=== PATIENT | female | born 1975 | race Caucasian/White ===

== ENCOUNTER 2020-03-03 14:15 | Emergency (ER) | payer BC, SELFPAY ==
--- NOTE | ~2020-03-03 | CT_ITS ---
EXAMINATION: CT lumbar spine wo con DATE: 03/03/2020 16:22 CDT INDICATION: Low back pain for one week TECHNIQUE: Computed tomography (CT) of the lumbar spine was performed without intravenous contrast. T he dose-length product was 501.95 mGy-cm. COMPARISON: None FINDINGS: Mild levocurvature of the lumbar spine. There is disc narrowing at L4-5. No fracture or tra umatic malalignment. No evidence for spondylolisthesis. There is vacuum phenomena at L5-S1. The follo wing disc levels are specifically discussed: L1-L2: There is mild annular disc bulging. There is no significant neural foraminal or spinal stenosi s. L2-L3: There is mild-moderate annular disc bulging. There is mild facet joint osteoarthritis. There i s bilateral neural foraminal stenosis. There is no central canal stenosis. L3-L4: There is mild annular disc bulging There is mild facet joint osteoarthritis. There is no neura l foraminal stenosis. There is no central canal stenosis. L4-L5: There is mild annular disc bulging. There is mild facet joint osteoarthritis. There is bilater al neural foraminal stenosis. There is mild central canal stenosis. L5-S1: There is mild annular disc bulging. There is mild facet joint osteoarthritis. There is no neur al foraminal stenosis. There is no central canal stenosis. IMPRESSION: 1. Mild-moderate lumbar spondylosis. Reviewed, dictated and finalized at location A.
[2020-03-03 14:30] VITALS: BP 126/66; PULSE 66; RESP 18; TEMP 36.8; O2SAT 100
--- NOTE | 2020-03-03 14:48 | ED.BACK ---
HPI - Back Pain/Injury General Chief Complaint: Back Pain/Injury Stated Complaint: back pain Time Seen by Provider: 03/03/20 14:49 Source: patient Mode of arrival: EMS Limitations: no limitations History of Present Illness HPI Narrative: 44-year-old woman comes in today complaining of low back pain that started 10/10/2022 while she was bending over using her clothes dryer. She states the pain has gotten progressively worse over the last few days and in the last 2 days she has been unable to get out of bed because of the pain. She has been taking Ultram, muscle relaxer, and ibuprofen to no avail. Her last dose of ibuprofen was at noon today. She denies fever, night sweats, numbness, tingling, weakness, incontinence, bowel or bladder difficulties, abdominal pain, or trauma. She states she has had back pain problems in the past but never this severe. She states that she sits a lot at work. MD elicited complaint: back pain Pertinent past history: prior back pain Onset (ago): week(s) (1) Timing: constant and progressively worsening Severity: severe Similar Symptoms Previously: Yes Quality: sharp and aching Location: lumbar spine Radiation: none Exacerbating factors: movement, sitting upright and walking Relieving factors: other ( Most comfortable in a lateral decubitus position) Context: bending Associated symptoms: denies other symptoms Treatments prior to arrival: NSAIDS, acetaminophen and prescription analgesics Work related injury: No Related Data Allergies Allergy/AdvReac Type Severity Reaction Status Date / Time No Known Allergies Allergy Unverified 07/10/15 11:41 Review of Systems Constitutional: Constitutional: Denies chills, Denies fever(s) and Denies weakness ENT: Denies dysphagia, Denies nasal congestion and Denies sore throat Cardiovascular: Cardiovascular: Denies chest pain and Denies radiating jaw, neck or arm pain Respiratory: Respiratory: Denies cough, Denies dyspnea and Denies wheezing Gastrointestinal: Gastrointestinal: Denies abdominal pain, Denies diarrhea, Denies nausea and Denies vomiting Genitourinary: Genitourinary: Denies hematuria, Denies nocturia, Denies dysuria and Denies urinary incontinence Musculoskeletal: Musculoskeletal: Reports as per HPI, Denies arthralgias and Denies joint swelling Integumentary/Breasts: Skin/Breast: Denies pruritus, Denies erythema and Denies rash Neurologic: Denies vertigo, Denies dizziness, Reports syncope and Denies focal weakness Psychiatric: Psychiatric: Denies anxiety and Denies depression Endocrine: Endocrine: Denies polydipsia and Denies polyuria Hematologic/Lymphatic: Hematologic/Lymphatic: Denies easy bleeding and Denies easy bruising Allergic/Immunologic: Allergic/Immunologic: Denies lip swelling and Denies wheezing [facility] Surgical History Surgical History (Updated 03/03/20 @ 15:15 by Miguel Angel Melton MD) Hx of cervical spine surgery Social History Social History Smoking status: Never smoker Alcohol intake: unknown Substance use: never Living arrangements: with family Exam Const: General: healthy appearing and alert Orientation/consciousness: patient oriented x3 Limitations: no limitations Other: mild acute distress in right lateral decubitus position HENMT: Head: normal to inspection Mouth: Yes moist mucous membranes Eyes: Conjunctivae: conjunctivae normal Pupils: Equal, round and reactive pupils present EOM: EOMs intact bilaterally Resp: Effort & Inspection: normal respiratory effort and not labored Auscultation: clear to auscultation bilaterally, no rales, no rhonchi and no wheezes Cardio: Rate: regular rate Rhythm: regular rhythm Heart sounds: no murmurs GI: Auscultation: normal bowel sounds Other: nontender nondistended Skin: General skin exam: normal color, no jaundice and no pallor Rashes: no rashes Neuro: General: patient oriented x3, moves all ext
[2020-03-03] MEDS: ONDANSETRON INJ 4 MG/2 ML VIAL IV PUSH (15:05)
[2020-03-03] MEDS: HYDROMORPHONE HCL 2 MG/ML VIAL 0.5 MG IV PUSH ×3 (15:05→16:47)
[2020-03-03] MEDS: SODIUM CHLORIDE 0.9% IV 1,000 ML 999 ML IV CONT (15:05)
[2020-03-03 15:18] LABS: Basophils Absolute Auto 0.05 K/mm3 (0.00-0.10); Basophils Percent Auto 0.6 % (0.0-1.0); Eosinophils Absolute Auto 0.06 K/mm3 (0.02-0.50); Eosinophils Percent Auto 0.7 % (1.0-6.0); Hematocrit 40.2 % (35.0-49.0); Hemoglobin 13.4 g/dL (12.0-15.0); Immature Granulocyte Absolute 0.03 K/mm3 (0.00-0.00); Immature Granulocyte Percent A 0.3 % (0.0-0.0); Lymphocytes Absolute Auto 1.33 K/mm3 (1.10-4.50); Lymphocytes Percent Auto 15.1 % (18.0-42.0); Mean Corpuscular HGB Conc 33.3 g/dL (32.0-36.0); Mean Corpuscular Hemoglobin 32.1 pg (27.0-31.0); Mean Corpuscular Volume 96.2 fL (78.0-102.0); Mean Platelet Volume 10.2 fl (9.2-11.8); Monocytes Percent Auto 5.7 % (2.0-11.0); Neutrophils Absolute Auto 6.9 K/mm3 (1.7-7.2); Neutrophils Percent Auto 77.6 % (50.0-70.0); Platelet Count Result 257 K/mm3 (150-420); Red Blood Count 4.18 M/mm3 (4.20-5.40); White Blood Count 8.8 K/mm3 (4.8-10.8)
[2020-03-03 15:34] LABS: Alanine Aminotransferase 22 U/L (14-59); Albumin Level 3.4 g/dL (3.4-5.0); Alkaline Phosphatase 50 U/L (46-116); Anion Gap 14.3 mmol/L (7-16); Aspartate Amino Transferase 27 U/L (15-37); Bilirubin,Total 0.6 mg/dL (0.00-1.00); Blood Urea Nitrogen 7 mg/dL (7-18); Calcium 8.2 mg/dL (8.5-10.1); Carbon Dioxide 23 mmol/L (21-32); Chloride 106 mmol/L (98-108); Estimated CRCL calculation 83 ml/min; Estimated Glomerular Filt Rate > 60; Glucose 85 mg/dL (70-99); Osmolality Calculated 285 mOsm/kg (285-295); Potassium 4.3 mmol/L (3.5-5.1); Sodium 139 mmol/L (136-145); Total Protein 6.6 g/dL (6.4-8.2)
[2020-03-03 15:35] LABS: CRP < 0.2 mg/dL (0.0-0.9)
[2020-03-03 15:36] LABS: Add Urine Microscopic? YES; Appearance Urine Clear (Clear); Bilirubin Urine Negative (Negative); Blood Urine Negative (Negative); Color Urine Yellow (Yellow); Glucose Urine UA Negative (Negative); Ketones Urine 1+ (Negative); Leukocyte Esterase Ur Negative (Negative); Nitrate Urine Negative (Negative); Protein Urine Negative (Negative); Specific Grav Ur 1.015 (1.010-1.020); Urobilinogen Urine 0.2 mg/dL (0.2-1.0); pH Urine 6.5 (5.0-8.0)
[2020-03-03 15:38] LABS: Pregnancy On Board Control Positive; Specific Gravity Ur 1.015 (1.010-1.035); Urine Pregnancy Test Negative
[2020-03-03 15:41] LABS: Bacteria Urine 1+ /hpf; RBC Urine None seen /hpf (0-2); Squamous Epithelial Cell Urine Moderate /hpf (Few); WBC Urine None seen /hpf (0-3)
--- NOTE | 2020-03-03 17:00 | PC.NURSE ---
attempted to ambulate patient. pt able to sit up put feet on the floor but states she is having too much pain to stand. edp aware.
[2020-03-03 17:08] VITALS: BP 102/50; PULSE 56; RESP 16; O2SAT 100
== END 2020-03-03 17:42 | disposition home or self-care (01) ==
PROVIDERS: Emergency Provider Emergency Medicine
DX: M54.5 Low back pain (principal)
CPT/HCPCS: 36415; 72131; 80053; 81001; 81025; 85025; 86140; 96361; 96374; 96375; 96376; 99283; 99284; J1170; J2405; J7030